=== PATIENT | male | born 1985 | race Two or more races ===

== ENCOUNTER 2020-10-03 15:21 | Inpatient (IN) | payer SELFPAY ==
[~2020-10-03] VITALS: Ht 170.2 cm; Wt 72.7 kg
[2020-10-03 15:25] VITALS: Ht 170.2 cm; Wt 72.7 kg
--- NOTE | 2020-10-03 15:30 | NUR ---
PREVIOUS NOTE ENTERED BY Cortes GUY RN UNDER Iza MORGAN RN'S LOGIN.
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
--- NOTE | 2020-10-03 15:36 | NUR ---
HALDOL 10MG AND ATIVAN 2MG IM GIVEN FOR AGITATION.
[2020-10-03 15:43] LABS: BASOPHILS 0.1 % (0-2); EOSINOPHILS 1.9 % (0-7); HEMOGLOBIN 14.1 g/dL (13.5-17.5); LYMPHOCYTES 51.1 % (15-50); MCH 31.4 pg (26.0-34.0); MCHC 34.4 g/dL (31.0-37.0); MCV 91.3 fL (80.0-100.0); MEAN PLATELET VOLUME 8.4 fL (7.4-10.4); MONOCYTES 7.1 % (2-11); NEUTROPHILS 39.8 % (40-80); PLATELET COUNT 266 10x3/uL (130-400); RBC 4.49 10x6/uL (4.20-6.10); WBC 9.8 10x3/uL (4.8-10.8)
[2020-10-03 15:46] LABS: CALC OSMOLALITY 286 mosm/kg (275-300); CALCIUM 8.3 mg/dL (8.5-10.1); CARBON DIOXIDE 17.5 mmol/L (21.0-32.0); CHLORIDE - SERUM 109 mmol/L (98-107); CREATININE - SERUM 1.1 mg/dL (0.6-1.3); GLUCOSE 109 mg/dL (74-106); POTASSIUM - SERUM 3.5 mmol/L (3.5-5.1); SODIUM 144 mmol/L (136-145); UREA NITROGEN 11 mg/dL (7-18); eGFR NON AFRICAN AMERICAN 80 mL/min (90-120)
[2020-10-03 15:52] LABS: ALBUMIN 3.6 g/dL (3.4-5.0); ALKALINE PHOSPHATASE 96 U/L (30-120); ALT (SGPT) 40 U/L (10-68); BILIRUBIN - TOTAL 0.25 mg/dL (0.2-1.3); MAGNESIUM - SERUM 2.1 mg/dL (1.8-2.4); PROTEIN - SERUM 7.3 g/dL (6.4-8.2)
--- NOTE | 2020-10-03 16:09 | NUR ---
HALDOL 5MG IM GIVEN DUE TO CONTINUED AGITATION, YELLING, AND COMBATIVENESS.
--- NOTE | 2020-10-03 16:36 | NUR ---
PATIENT CONTINUES TO THRASH AROUND, MOANING. MORPHINE GIVEN FOR PAIN ASSESSED AT 9/10 BY [employer] FACES SCALE.
--- NOTE | 2020-10-03 16:55 | NUR ---
IN AND OUT URINARY CATH FOR URINE SPECIMEN. 900MLS CLEAR URINE. SPECIMEN TO LAB.
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
--- NOTE | 2020-10-03 19:20 | NUR ---
[employer] OFFICER KYLE AT BEDSIDE WITH PT IN CUSTODY AT THIS TIME. OFFICER STATES WHEN PT IS DISCHARGED HE WILL REMIAN IN [employer]ICE CUSTODY. PT DENEIS NEEDS AT THIS TIME. NO ACUTE DISTRESS NOTED, BED IN LOWEST POSITION, CALL LIGHT WITHIN REACH
[2020-10-03] MEDS ORDERED: CLEOCIN HCL300 MG PO (20:39)
[2020-10-03 21:03] VITALS: BP 131/76
--- NOTE | 2020-10-03 21:03 | NUR ---
PT DISCHARGED INTO [employer] CUSTODY WITH OFFICER KYLE AT BEDSIDE. PT AMBULATED OUT OF THE DEPARTMENT AT THIS TIME.
== END 2020-10-03 21:30 | DRG 935 ==
LOC: D.ER 15:21 → D.EDHOLD 16:54
PROVIDERS: Emergency Medicine; ADMIT Emergency Medicine; ATTEND Emergency Medicine
DX: T22.251A Burn of second degree of right shoulder, initial encounter (principal); X08.8XXA Exposure to other specified smoke, fire and flames, initial encounter; F10.129 Alcohol abuse with intoxication, unspecified; Y90.6 Blood alcohol level of 120-199 mg/100 ml; T31.0 Burns involving less than 10% of body surface; T21.11XA Burn of first degree of chest wall, initial encounter; T20.10XA Burn of first degree of head, face, and neck, unspecified site, initial encounter